=== PATIENT | male | born 1985 | race Caucasian/White ===

== ENCOUNTER 2021-04-14 19:20 | Emergency (ER) | payer BC, SELFPAY ==
[2021-04-14] VITALS (8 sets, daily range): BP systolic 129; BP diastolic 79–83; PULSE 60–82; RESP 14–18; TEMP 36.7; O2SAT 96–98
--- NOTE | ~2021-04-14 | CT_ITS ---
EXAMINATION: CT abdomen pelvis w con DATE: 04/14/2021 23:22 INDICATION: Lower abdominal and right flank pain TECHNIQUE: Computed tomography (CT) of the abdomen and pelvis was performed with 100 cc Omnipaque 350 intravenous contrast. The dose-length product was 1229.63 mGy-cm. Automated exposure control and ite rative reconstruction technique were employed. COMPARISON: None. FINDINGS: Lung bases are unremarkable. Heart size is normal. Small hiatal hernia. No significant pleu ral or pericardial effusion. No significant vascular abnormality. No lymphadenopathy. Small fat-conta ining umbilical hernia. The liver, spleen, pancreas, adrenal glands are unremarkable. There are bilat eral renal cysts. Gallbladder is present. There is mild thickening of the pylorus and proximal small bowel, suspicious for gastroenteritis. Nonobstructive bowel gas pattern. No evidence for diverticulit is or appendicitis. No free air or free fluid. No acute osseous abnormality. No free air, free fluid or abscess. IMPRESSION: 1. Abnormal mucosal thickening of the pylorus and proximal small bowel, suspicious for gastroenteriti s. No obstruction. Reviewed, dictated and finalized at location A. IMPRESSION: 1. Abnormal mucosal thickening of the pylorus and proximal small bowel, suspici ous for gastroenteritis. No obstruction.
--- NOTE | ~2021-04-14 | XR_ITS ---
EXAMINATION: XR chest 2V 04/14/2021 19:51 INDICATION: Right-sided chest pain for 2-3 hours PROCEDURE: PA and lateral views of the chest COMPARISON: No prior studies for comparison. FINDINGS: The lungs are clear. The cardiomediastinal silhouette is within normal limits. There are no pleural effusions. There is no pneumothorax suspected. IMPRESSION: 1: NO ACUTE CARDIOPULMONARY DISEASE. Reviewed, dictated and finalized at location A.
--- NOTE | 2021-04-14 19:34 | ECG_ITS ---
Measurements Intervals [place] Rate: 89 P: 54 CO: 143 QRS: 59 QRSD: 83 T: 10 QT: 302 QTc: 369 Interpretive Statements SINUS RHYTHM WITH MARKED SINUS ARRHYTHMIA BORDERLINE ST-T WAVE ABNORMALITY- DIFFUSE LEADS BORDERLINE ECG Electronically Signed On 04-15-2021 6:35:43 CDT by Kip Lin D.O.
[2021-04-14 22:08] LABS: Basophils Percent Auto 0.1 % (0.2-1.2); Eosinophils Percent Auto 0.2 % (0-4.4); Hematocrit 46.9 % (42.0-52.0); Hemoglobin 16.1 g/dL (14.0-18.0); Immature Granulocyte Absolute 0.04 K/mm3 (0.00-0.031); Immature Granulocyte Percent A 0.3 % (0-0.5); Lymphocytes Percent Auto 15.4 % (18.3-44.2); Mean Corpuscular HGB Conc 34.3 g/dl (32-36); Mean Corpuscular Hemoglobin 30.3 pg (26-34); Mean Corpuscular Volume 88.3 fl (80-100); Mean Platelet Volume 9.8 fl (7.4-10.4); Monocytes Percent Auto 7.5 % (2.6-8.5); Neutrophils Absolute Auto 10.4 K/mm3 (1.3-6.7); Neutrophils Percent Auto 76.5 % (45.5-73.1); Platelet Count Result 264 k/mm3 (150-375); Red Blood Count 5.31 M/mm3 (4.6-6.20); Red Cell Distribution Width 13.4 % (11.5-14.5); White Blood Count 13.6 K/mm3 (4.5-10.0)
--- NOTE | 2021-04-14 22:20 | ED.GENADULT ---
HPI - General Adult General Chief complaint: Chest Pain Stated complaint: Chest pain Time Seen by Provider: 04/14/21 21:57 Source: patient and RN notes reviewed Mode of arrival: ambulatory Limitations: no limitations History of Present Illness HPI narrative: This is a 35 year old male who presents for evaluation of right flank pain and chest pain. Patient states he was awaken by sudden onset right back pain , flank pain 6 hours ago. He states this pain occurred along with upper abdominal pain , chest pain. He reports his chest pain felt like pressure but it has subsided. He is continued to have constant severe right flank pain. His pain worsened with laying on his right side. He also reports having emesis with laying on his right side. He has had intermittent hot and cold spells. He denies shortness or cough. He denies any relieving factors and he has not taken anything for pain. He denies previous history of similar pain. No Family history of aneurysm. Related Data Allergies Allergy/AdvReac Type Severity Reaction Status Date / Time No Known Allergies Allergy Verified 04/14/21 21:39 Review of Systems Review of Systems: All systems reviewed & are unremarkable except as noted in HPI and below [facility] Past Medical History Medical History (Updated 04/15/21 @ 00:47 by Shi Deshpande MD) No significant medical problems Surgical History Surgical History (Updated 04/15/21 @ 00:44 by Shi Deshpande MD) No pertinent past surgical history Social History Social History Smoking status: Never smoker Alcohol intake: never Exam Const: General: no acute distress and alert Orientation/consciousness: patient oriented x3 Eyes: Pupils: Equal, round and reactive pupils present EOM: EOMs intact bilaterally Chest: Chest palpation & inspection: normal inspection of the chest Resp: Effort & Inspection: normal respiratory effort and no retractions Auscultation: clear to auscultation bilaterally Cardio: Rate: regular rate Rhythm: regular rhythm Heart sounds: no murmurs GI: GI Palp: Yes Soft to palpation, Yes Tenderness to palpation present (GI) (Right flank, LLQ), No Guarding due to palpation present (GI) and No Rigid due to palpation Auscultation: normal bowel sounds : General: Yes no CVA tenderness Back/Spine/Pelvis: Back: no CVA tenderness Skin: General skin exam: normal color Rashes: no rashes Neuro: General: patient oriented x3, moves all extremities and CN's II-XI intact bilaterally Extrem: General: normal to inspection Psych: Mental Status: mental status grossly normal Affect: normal affect Course Reevaluation(s) Reevaluation #1: PAtient reports he feels better. I Discussed CT shows gastroenteritis. He will be started on levsin and PPI. Date: 04/15/21 Time: 00:45 Vital Signs Vital signs: Vital Signs Temperature 98.1 F 04/14/21 19:33 Pulse Rate 81 04/14/21 19:33 Respiratory Rate 18 04/14/21 19:33 Pulse Oximetry 96 04/14/21 19:33 Temperature 98.1 F 04/14/21 19:33 Pulse Rate 58 L 04/15/21 00:56 Respiratory Rate 16 04/15/21 00:56 Blood Pressure 112/67 04/15/21 00:56 Pulse Oximetry 98 04/15/21 00:56 Medical Decision Making Vital Signs Vital Signs: Vital Signs Temperature 98.1 F 04/14/21 19:33 Pulse Rate 81 04/14/21 19:33 Respiratory Rate 18 04/14/21 19:33 Pulse Oximetry 96 04/14/21 19:33 Temperature 98.1 F 04/14/21 19:33 Pulse Rate 58 L 04/15/21 00:56 Respiratory Rate 16 04/15/21 00:56 Blood Pressure 112/67 04/15/21 00:56 Pulse Oximetry 98 04/15/21 00:56 Lab Data Lab results reviewed: Yes I reviewed the patient's lab results. Result diagrams: 04/14/21 21:55 04/14/21 22:29 Labs: Lab Results 04/14/21 04/14/21 04/14/21 Range/Units 21:55 22:29 22:43 WBC 13.6 H (4.5-10.0) K/mm3 RBC 5.31 (4.6-6.20) M/mm3 Hgb 16.1 (14.0-18.0) g/dL Hct 46.9 (42.0-52.0)
[2021-04-14 22:56] LABS: Anion Gap 12 mmol/L (8-16); Blood Urea Nitrogen 11 mg/dL (9-20); Calcium 9.8 mg/dL (8.4-10.2); Carbon Dioxide 23 mmol/L (22-30); Chloride 106 mmol/L (98-107); Estimated CRCL calculation 112 ml/min; Estimated Glomerular Filt Rate > 60; Glucose 109 mg/dL (65-110); Lipase 43 U/L (23-300); Sodium 141 mmol/L (137-145)
[2021-04-14] MEDS: SODIUM CHLORIDE 0.9% IV 1,000 ML 999 ML IV CONT (23:02)
[2021-04-14] MEDS: ONDANSETRON INJ 4 MG/2 ML VIAL IV PUSH (23:02)
[2021-04-14 23:03] LABS: Alanine Aminotransferase 16 U/L (4-50); Albumin Level 4.8 g/dL (3.5-5.1); Alkaline Phosphatase 85 U/L (38-126); Aspartate Amino Transferase 26 U/L (17-59); Bilirubin,Total 1.5 mg/dL (0.2-1.3); Lipase 43 U/L (23-300)
[2021-04-14 23:08] LABS: Prothrombin Time 13.3 Seconds (11.1-14.7)
[2021-04-14 23:08] LABS: Troponin I < 0.012 ng/mL (0.000-0.034)
--- NOTE | 2021-04-14 23:08 | PC.NURSE ---
No need for Aspirin, chest pain has subsided. clarified with
[2021-04-14 23:11] LABS: Add Urine Microscopic? YES; Appearance Urine Cloudy (Clear); Bacteria Urine Trace /hpf; Bilirubin Urine Negative (Negative); Blood Urine Negative (Negative); Color Urine Yellow (Yellow); Glucose Urine UA Negative (Negative); Ketones Urine Negative (Negative); Leukocyte Esterase Ur Negative LEU/UL (Negative); Mucus Urine Rare /lpf; Nitrate Urine Negative (Negative); Protein Urine 1+ mg/dL (Negative); RBC Urine 0-2 /hpf (0-2); Specific Grav Ur 1.026 (1.001-1.035); Squamous Epithelial Cell Urine Rare /hpf (Few); WBC Urine 0-3 /hpf
--- NOTE | 2021-04-14 23:15 | PC.NURSE ---
Pt off floor in radiology
[2021-04-14] MEDS: DICYCLOMINE HCL INJ 20 MG/2 ML VIAL IM (23:57)
[2021-04-14] MEDS: PANTOPRAZOLE SODIUM IV 40 MG VIAL IV PUSH (23:57)
[2021-04-15 00:56] VITALS: BP 112/67; PULSE 58; RESP 16; O2SAT 98
== END 2021-04-15 01:06 | disposition home or self-care (01) ==
PROVIDERS: Emergency Medicine; Emergency Provider General Practice
DX: K52.9 Noninfective gastroenteritis and colitis, unspecified (principal); R94.31 Abnormal electrocardiogram [ECG] [EKG]
CPT/HCPCS: 36415; 71046; 74177; 80048; 80076; 81001; 83690; 84484; 85025; 85610; 85730; 93005; 96365; 96372; 96375; 99284; C9113; J0131; J0500; J2405; J7030; Q9967

== ENCOUNTER 2024-01-06 15:27 | Outpatient (CLI) | payer BC, SELFPAY ==
--- NOTE | ~2024-01-06 | XR_ITS ---
XR_[id number] 01/06/2024 15:55 Indication: Cervicalgia Procedure: 3 views cervical spine Comparison: No prior studies for comparison. Findings: No fracture, subluxation or dislocation. Anatomic alignment. No prevertebral soft tissue sw elling. Odontoid process is normal. Lung apices are normal. Vertebral body and disc heights are prese rved. Impression: 1: No significant abnormality of the cervical spine. Reviewed, dictated and finalized at location B. Impression: 1: No significant abnormality of the cervical spine.
--- NOTE | ~2024-01-06 | XR_ITS ---
XR thoracic spine 2V 01/06/2024 15:55 Indication: Back pain Procedure: 5 views of the thoracic spine Comparison: No prior studies for comparison. Findings: There is dextroscoliosis of the thoracic spine. Vertebral body heights are maintained. No f racture or traumatic malalignment. There is mild lower thoracic spondylosis. No paraspinal soft tissu e abnormality. Pedicles intact. Impression: 1: Mild thoracic spondylosis with dextroscoliosis. Reviewed, dictated and finalized at location B. Impression: 1: Mild thoracic spondylosis with dextroscoliosis.
--- NOTE | ~2024-01-06 | XR_ITS ---
XR scapula RT 01/06/2024 15:55 INDICATION: Right shoulder pain PROCEDURE: 2 views right scapula COMPARISON: No prior studies for comparison. FINDINGS: Fracture, dislocation or subluxation is not identified. The soft tissues appear within norm al limits. No foreign bodies are identified. IMPRESSION: 1: NO ACUTE BONE OR JOINT ABNORMALITY IDENTIFIED. Reviewed, dictated and finalized at location B.
== END 2024-01-06 15:28 ==
LOC: MICIMG 15:30
PROVIDERS: PCP Physician Assistant; Visit Provider Physician Assistant
DX: M25.511 Pain in right shoulder (principal); M54.6 Pain in thoracic spine; M54.2 Cervicalgia; M47.894 Other spondylosis, thoracic region
CPT/HCPCS: 72040; 72070; 73010